=== PATIENT | female | born 1980 | race Caucasian/White ===

== ENCOUNTER 2019-09-19 09:50 | Emergency (ER) | payer SELFPAY ==
[2019-09-19] MEDS ORDERED: Ketorolac Tromethamine 30 MG/ML VIAL ONE (11:11)
[2019-09-19] MEDS ORDERED: Acetaminophen 500 MG TAB ONE (11:11)
[2019-09-19] MEDS ORDERED: Ondansetron ODT 4 MG TAB ONE (11:26)
[2019-09-19 11:55] LABS: Bacteria/HPF 1+ HPF (None Seen); Bilirubin Negative (Negative); Blood, Urine 3+ (Negative); Calcium Oxalate Crystals 2+ HPF (None Seen); Clarity Turbid (Clear); Glucose, Urine (Dipstick) Normal (Negative); Leukocyte 500 Leu/uL (Negative); Mucous/LPF Rare LPF (<2+); Nitrite Negative (Negative); Protein, Urine (Dipstick) 30 mg/dL (Neg-Trace); RBC/HPF Greater than 50 HPF (0-3); Squamous Epithelial 0-3 HPF (0-3); Urobilinogen 3 mg/dL (Less than 2); WBC/HPF Greater than 50 HPF (0-3)
--- NOTE | 2019-09-19 11:59 | CT ---
CT ABDOMEN AND PELVIS WITHOUT CONTRAST: Date: 09/19/2019 COMPARISON: Report from CT abdomen/pelvis dated 06/23/2019. HISTORY: Severe abdominal pain causing the patient to pass out. TECHNIQUE: Multiple contiguous axial images were obtained in a CT of the abdomen and pelvis without contrast. Sa gittal and coronal reformats were performed. FINDINGS: A cortically based calcification is seen in the right kidney. There is also a calcification within on e of the right renal calices measuring 8.0 mm in size. No hydronephrosis is seen on either side. No l eft renal calcifications are present. The liver, gallbladder, adrenal glands, spleen, and pancreas are unremarkable, although evaluation is limited without IV contrast. No free air, free fluid, or stranding changes are seen in the abdomen or pelvis. The reproductive org ans are unremarkable. The large and small bowel are unremarkable. The appendix is normal. No abdominal or pelvic lymphadenopathy seen. The osseous structures, visualized inferior thorax, and abdominal wall soft tissues are unremarkable. IMPRESSION: Nonobstructing right renal calcification. POS: [facility]
== END 2019-09-19 13:23 | disposition home or self-care (01) ==
LOC: ERS 09:50
DX: N20.0 Calculus of kidney (principal); F41.9 Anxiety disorder, unspecified; F32.9 Major depressive disorder, single episode, unspecified; Z87.891 Personal history of nicotine dependence
CPT/HCPCS: 74176; 81003; 81015; 96372; J1885; Q0162

== ENCOUNTER 2019-10-12 02:49 | Emergency (ER) | payer MEDICAID ==
[2019-10-12] MEDS ORDERED: Ketorolac Tromethamine 30 MG/ML VIAL ONE (03:25)
[2019-10-12 03:26] LABS: Bacteria/HPF 1+ HPF (None Seen); Bilirubin Negative (Negative); Blood, Urine Negative (Negative); Clarity Turbid (Clear); Glucose, Urine (Dipstick) Normal (Negative); Leukocyte 500 Leu/uL (Negative); Nitrite Negative (Negative); Protein, Urine (Dipstick) 70 mg/dL (Neg-Trace); RBC/HPF 0-3 HPF (0-3); Squamous Epithelial 0-3 HPF (0-3); Urobilinogen Normal mg/dL (Less than 2); WBC/HPF Greater than 50 HPF (0-3)
[2019-10-12 03:27] LABS: Pregnancy Test - Urine (BHCG) Negative (Negative); Pregu Control Background? CLEAR/WHITE (CLR/WHITE); Pregu Control Bar Appear? YES (CONTROL BAR); Specific Gravity 1.014 (1.002-1.036)
[2019-10-12 04:31] LABS: #Eosinphils 0.2 thou/uL (0.0-0.7); #Lymphocytes 2.9 thou/uL (1.20-3.40); #Monocytes 0.9 thou/uL (0.11-0.59); %Basophils 0.4 % (0.0-1.0); %Eosinophils 1.5 % (0.0-10.0); %Lymphocytes 26.4 % (21.0-51.0); %Monocytes 8.2 % (0.0-10.0); %Neutrophils 63.5 % (42.0-75.0); Hemoglobin 14.3 g/dL (12.0-16.0); Mean Corpuscular HGB CONC 34.7 g/dL (32.0-36.0); Mean Corpuscular Hemoglobin 31.9 pg (27.0-31.0); Mean Corpuscular Volume 92.1 fL (78.0-98.0); Mean Platelet Volume 9.2 fL (7.4-10.4); Platelet Count 130 thou/uL (130-400); RBC Distribution Width 11.4 % (11.5-14.5); Red Blood Cell (RBC) Count 4.49 mill/uL (4.20-5.40)
[2019-10-12 04:41] LABS: Anion Gap 12 mmol/L (10-20); BUN (Urea Nitrogen) 8 mg/dL (7.0-18.7); Calc. Creatinine Clearance 0 mL/min (70-130); Calcium 8.7 mg/dL (7.8-10.44); Carbon Dioxide 22 mmol/L (22-29); Chloride 106 mmol/L (98-107); Estimated GFR-MDRD Greater than 90; Glucose 109 mg/dL (70-105); Potassium 3.5 mmol/L (3.5-5.1); Sodium 136 mmol/L (136-145)
== END 2019-10-12 05:19 | disposition home or self-care (01) ==
LOC: ERS 02:49
DX: R10.31 Right lower quadrant pain (principal); R31.9 Hematuria, unspecified; F41.9 Anxiety disorder, unspecified; F32.9 Major depressive disorder, single episode, unspecified; Z87.891 Personal history of nicotine dependence
CPT/HCPCS: 36415; 80048; 81003; 81015; 81025; 85025; 87086; 96372; 99284; J1885

== ENCOUNTER 2019-10-17 14:03 | Outpatient (CLI) | payer MEDICAID ==
[~2019-10-17 14:03] MED LIST: Iopamidol 370 76% 100 ML VIAL ONE
--- NOTE | 2019-10-17 17:20 | CT ---
CT OF THE ABDOMEN AND PELVIS WITH AND WITHOUT IV CONTRAST: 10/17/19 INDICATION: History of microhematuria, renal calculi, hepatitis C and renal scarring. COMPARISON: Noncontrast CT of the abdomen and pelvis dated 09/19/19. FINDINGS: The lung bases are clear. No focal hepatic lesion is evident. The gallbladder is mildly distended. Th e pancreas, adrenal glands and spleen appear within normal limits. There is renal cortical scarring involving the right kidney. There is slightly more pronounced wall t hickening involving the right renal pelvis and proximal to mid right ureter with some periureteral in flammatory stranding and wall thickening. The segmentally opacified ureters are otherwise within normal limits. The visualized partially opacif ied bladder is unremarkable appearing except for some mild wall thickening and perivesicular fat stra nding. There is a stable right nephrolithiasis with the nonobstructing renal stone measuring approxim ately 8 mm involving the inferior pole of the right kidney. There is a small area of renal cortical c alcification involving the right mid kidney which is stable appearing. No left sided renal or uretera l calculus is noted. No free fluid or enlarged lymph nodes are evident. Reproductive structures appear within normal limits. The colon and small bowel appear within normal l imits. There is a normal appendix in the right lower quadrant of the abdomen. No definite acute osseo us abnormality is evident. IMPRESSION: 1. Findings of cystitis and an ascending right sided pyeloureteritis. No nephritis is grossly ev ident. No perinephric fluid collection is grossly evident. 2. Stable right nephrolithiasis and right renal cortical scarring. POS:
== END 2019-10-17 14:04 | disposition home or self-care (01) ==
LOC: BICCT 14:03
PROVIDERS: ATTEND Urology
DX: N20.0 Calculus of kidney (principal); R31.29 Other microscopic hematuria; B19.20 Unspecified viral hepatitis C without hepatic coma; N28.89 Other specified disorders of kidney and ureter; F19.10 Other psychoactive substance abuse, uncomplicated; N30.90 Cystitis, unspecified without hematuria; Z87.891 Personal history of nicotine dependence
CPT/HCPCS: 74178; Q9967

== ENCOUNTER 2019-11-07 11:15 | Outpatient (CLI) | payer MEDICAID ==
[2019-11-07 11:38] LABS: Bacteria/HPF None Seen HPF (None Seen); Bilirubin Negative (Negative); Blood, Urine 2+ (Negative); Clarity Clear (Clear); Glucose, Urine (Dipstick) Normal (Negative); Leukocyte 25 Leu/uL (Negative); Nitrite Negative (Negative); Protein, Urine (Dipstick) 20 mg/dL (Neg-Trace); RBC/HPF Greater than 50 HPF (0-3); Squamous Epithelial 0-3 HPF (0-3); Urobilinogen Normal mg/dL (Less than 2)
[2019-11-07 11:40] LABS: Urine Culture Reflex Yes Yes
--- NOTE | 2019-11-07 14:08 | RAD ---
Voiding cystourethrogram HISTORY: Renal stones. Urinary tract infection. FINDINGS: Approximately 300 cc of water-soluble contrast was instilled into the urinary bladder via a n indwelling catheter. Incidental note right renal calculus on the tack puller machine image, correlating with CT findings. Bladder demonstrates normal capacity and contour. No reflux into the ureters. Female urethra has a normal appearance during micturition. No significant post void residual. IMPRESSION : No ureteral reflux. No abnormalities are demonstrated.
== END 2019-11-07 11:16 | disposition home or self-care (01) ==
LOC: RAD 11:15
PROVIDERS: ATTEND Urology
DX: N30.90 Cystitis, unspecified without hematuria (principal); N20.0 Calculus of kidney; N28.89 Other specified disorders of kidney and ureter
CPT/HCPCS: 51600; 74455; 81001; 87086

== ENCOUNTER 2019-11-11 09:47 | Outpatient (CLI) | payer MEDICAID ==
--- NOTE | 2019-11-11 10:35 | RAD ---
EXAM: XR Abdomen 1 View/KUB PROVIDED CLINICAL HISTORY: Renal calculi COMPARISON: CT abdomen on 10/17/2019 FINDINGS: There are are calcifications overlying the right renal shadow largest overlying the inferior pole lik page related to renal calculi which were seen on prior CT exam. No additional suspicious calcifications are seen. The bowel gas pattern is nonspecific. Osseous structures have normal appeara nce. IMPRESSION: Right nephrolithiasis.
== END 2019-11-11 09:48 | disposition home or self-care (01) ==
LOC: RAD 09:47
PROVIDERS: ATTEND Urology
DX: N20.0 Calculus of kidney (principal)
CPT/HCPCS: 74018

== ENCOUNTER 2020-05-07 06:35 | Outpatient (CLI) | payer OTHER ==
[2020-05-07 15:50] LABS: Hemoglobin 16.1 g/dL (12.0-16.0); Mean Corpuscular HGB CONC 33.9 G/DL (32.0-36.0); Mean Corpuscular Hemoglobin 30.6 PG (27.0-33.0); Mean Corpuscular Volume 90.3 fl (80.0-100.0); Mean Platelet Volume 11.1 fl (7.4-10.4); Platelet Count 191 10x3/uL (130-400); Red Blood Cell (RBC) Count 5.26 10x6/uL (3.90-5.20); White Blood Cell (WBC) Count 9.8 10x3/uL (4.5-11.0)
[2020-05-07 16:04] LABS: INR-International Normal Ratio 0.9; PTT 29.5 sec (22.0-33.0); Prothrombin Time 9.8 sec (9.5-12.1)
[2020-05-07 16:23] LABS: Anion Gap 20 mmol/L (10-20); BUN (Urea Nitrogen) 9 mg/dL (7.0-18.7); Calc. Creatinine Clearance 0 mL/min (70-130); Calcium 9.1 mg/dL (7.8-10.44); Carbon Dioxide 19 mmol/L (22-29); Chloride 103 mmol/L (98-107); Estimated GFR-MDRD 90; Glucose 99 mg/dL (70-105); Potassium 4.5 mmol/L (3.5-5.1); Sodium 137 mmol/L (136-145)
[2020-05-09 12:09] LABS: SARS-CoV-2 MS2 Positive; SARS-CoV-2 N Gene Negative; SARS-CoV-2 S Gene Negative; SARS-CoV-2 by NAA Not Detected (NotDetected); SARS-CoV-2 orf1ab Negative
--- NOTE | 2020-05-12 06:55 | EKG ---
Test Reason : Blood Pressure : / mmHG Vent. Rate : 095 BPM Atrial Rate : 095 BPM P-R Int : 112 ms QRS Dur : 084 ms QT Int : 342 ms P-R-T Axes : 017 044 032 degrees QTc Int : 429 ms Normal sinus rhythm Nonspecific T wave abnormality Abnormal ECG Confirmed by SHERMAN OSMAN MD ([id number]) on 05/12/2020 6:55:28 AM Referred By: MARGAUX Confirmed By:SHERMAN OSMAN MD
== END 2020-05-07 06:36 | disposition home or self-care (01) ==
LOC: LABBT 06:35
PROVIDERS: ATTEND Urology
DX: Z01.818 Encounter for other preprocedural examination (principal); Z01.812 Encounter for preprocedural laboratory examination; N20.0 Calculus of kidney; B19.20 Unspecified viral hepatitis C without hepatic coma; F15.11 Other stimulant abuse, in remission; N28.89 Other specified disorders of kidney and ureter; R31.29 Other microscopic hematuria; Z87.891 Personal history of nicotine dependence; F19.10 Other psychoactive substance abuse, uncomplicated; Z86.718 Personal history of other venous thrombosis and embolism; N30.90 Cystitis, unspecified without hematuria; Z20.828 Contact with and (suspected) exposure to other viral communicable diseases
CPT/HCPCS: 80048; 81001; 85027; 85610; 85730; 87086; 87635; 93005; 93010; U0003

== ENCOUNTER 2020-05-12 09:16 | Day surgery (SDC) | payer OTHER ==
[2020-05-11 10:00] VITALS: BMI 33.0
[2020-05-12] MEDS ORDERED: Levofloxacin 500 mg/D5W 100 ml Premix Bag ONE (09:59)
[2020-05-12] MEDS ORDERED: Iothalamate Meglumine 60% 50 ML VIAL FS ONE (10:03)
[2020-05-12] MEDS ORDERED: Fentanyl 100 MCG/2 ML VIAL ONE ×2 (10:07→12:28)
[2020-05-12] MEDS ORDERED: Midazolam HCl 2 mg/2 ml Vial ONE (10:07)
--- NOTE | 2020-05-12 10:08 | RAD ---
Exam: 1 view abdomen COMPARISON: 11/11/2019 HISTORY: Renal calculi. Preoperative exam FINDINGS: There are few air-filled loops of small bowel, nonspecific. No osseous abnormalities There is a oval density projecting over the mid to lower right renal silhouette, measuring 1.1 cm. Th is density is similar to the previous exam. No abnormal densities in the left or right hemipelvis IMPRESSION: Solitary calculus projecting over the right.
[2020-05-12] MEDS ORDERED: PROPOFOL 200 MG/20 ML VIAL ONE (10:54)
[2020-05-12] MEDS ORDERED: Ondansetron PF 4 MG/2 ML Vial ONE (10:54)
[2020-05-12] MEDS ORDERED: Lidocaine 1% PF 5 ML VIAL ONE (10:54)
[2020-05-12] MEDS ORDERED: Dexamethasone 20 MG/5 ML VIAL ONE (10:54)
--- NOTE | 2020-05-12 11:24 | RAD ---
EXAM: Retrograde IVP HISTORY: Kidney stones COMPARISON: KUB 05/12/2020 FINDINGS/IMPRESSION: Limited intraoperative fluoroscopic views of the retrograde IVP were submitted f or interpretation. A right ureteral stent is seen in good position. The previously seen calcification projecting over the right kidney is not visualized on this exam.
[2020-05-12] MEDS ORDERED: Ketorolac Tromethamine 30 MG/ML VIAL ONE (11:30)
[2020-05-12] MEDS ORDERED: Oxybutynin 5 MG TAB ONE (11:59)
[2020-05-12] MEDS ORDERED: Phenazopyridine HCl 100 MG TAB ONE ×2 (12:00)
--- NOTE | 2020-05-12 12:41 | OP ---
DATE OF PROCEDURE: 05/12/2020 PREOPERATIVE DIAGNOSES: 1. A 40-year-old female with history of right mid to lower pole renal calculi, 8 mm. 2. Right mid pole cortical linear calcific density with cortical scarring 3. History of chronic right abdominal discomfort. POSTOPERATIVE DIAGNOSES: 1. A 40-year-old female with history of right mid to lower pole renal calculi, 8 mm. 2. Right mid pole cortical linear calcific density with cortical 3. History of chronic right abdominal discomfort. PROCEDURES PERFORMED: Cystoscopy, right retrograde pyelogram, balloon dilatation of the distal ureter, flexible ureteroscopy, pyeloscopy, laser lithotripsy of right lower pole calculi, 6 x 22 double-J ureteral stent with distal tail in situ. ANESTHESIA: LMA. COMPLICATIONS: None apparent. SPECIMEN: None. INTRAOPERATIVE FINDINGS: 1. Bladder grossly unremarkable. 2. Right lower pole renal calculi consistent with CT. 3. Second linear calcific density parenchymal based on CT, consistence that it is not in the collecting system. INDICATIONS FOR PROCEDURE AND HISTORY: Ms. Woodard is a 40-year-old female referred to de by [facility] due to history of hematuria, UTI, right renal calculi. CT demonstrated a right nonobstructing lower pole 8 mm calculi. She does also have a cortically-based calcification of the right renal parenchyma 5 mm with scarring. She did undergo workup for VCUG negative for reflux. She has been fully informed that her presenting chronic right upper quadrant abdominal discomfort is unlikely due to her presenting renal calculi as there is no evidence of hydronephrosis nor is it in the location for a ball-valve intermittent obstruction. Nevertheless, she desires to proceed with elective ureteroscopy and laser lithotripsy of the stone. We discussed options of ESWL and she desires more definitive treatment and presents today for ureteroscopy, laser lithotripsy. Risks and complications of the procedure were reviewed with her in detail including, but not limited to: Bleeding, pain, infection, injury to adjacent organs, ureteral renal kidney injury, sepsis, stricture formation. Possible secondary procedure reviewed and she desired to proceed without reservation. DESCRIPTION OF PROCEDURE: After an informed consent was signed, the patient was taken to the operating room, placed in a dorsal lithotomy position with the genital area prepped and draped in the usual surgical sterile fashion. The bladder was entered with a 21-Stateless cystoscope and the urethra was grossly unremarkable as well as the bladder. The ureteral orifices identified in normal anatomical location. The right UO was intubated with a 5-Stateless open-ended catheter and a retrograde pyelogram performed demonstrating no evidence of hydronephrosis. The stone was seen as a radiopaque density in the mid to lower pole. At this time, a 0.035 Sensor wire was placed into the right upper pole and a balloon dilation of the intramural ureter was performed with a 4 cm 12-Stateless [employer] dilator. After appropriate dilatation, the balloon was completely deflated and a 10-Stateless dual-lumen access sheath was able to be passed without significant issues to the level of the proximal ureter. A 0.035 Super Stiff wire was then placed as a safety wire into the right upper pole. At this time, a 12/14-Stateless navigator was unable to be passed without significant issues to the level of the proximal ureter atraumatically. The inner stylet was removed and a flexible ureteroscope was unable to be advanced into the collecting system. We surveyed the collecting system and again the only stone I was able to see was the mid to lower pole stone consistent with a CAT scan. Laser lithotripsy of the stone was performed with a 265 micron laser fiber with a ball-tip at 1.0 joules. The stone broke up nicely into multiple tiny fragmented debris. At the end of the procedure, the stone fragments were too small to basket extract. What remained were tiny dust-like debris, which she will pass uneventfully. The ureter was surveyed, which demonstrated no evidence of ureteral trauma, stone debris of concern. A 6 x 22 double-J ureteral stent was passed without difficulty. Proximal coil was seen in the mid pole with adequate redundancy in the bladder with distal tail left in situ. The bladder was completely emptied and all wires were removed and corrected. She tolerated the procedure well and transported to the recovery room in stable condition. She will see me next Sunday at 8 o'clock for cysto, stent pull under local, with KUB to be obtained at 7:00 a.m., 1 hour prior to the appointment as she travels out of town to see me. Postop medications sent to the patient's pharmacy in [place]. Job ID: [id number] MTDD
== END 2020-05-12 13:59 | disposition home or self-care (01) ==
LOC: SDC 09:16
PROVIDERS: ATTEND Urology
PROC: 0T768DZ Dilation of Right Ureter with Intraluminal Device, Via Natural or Artificial Opening Endoscopic (ICD-10-PCS; principal; 2020-05-12)
PROC: 0TC38ZZ Extirpation of Matter from Right Kidney Pelvis, Via Natural or Artificial Opening Endoscopic (ICD-10-PCS; principal; 2020-05-12)
DX: N20.0 Calculus of kidney (principal); N18.6 End stage renal disease; F41.9 Anxiety disorder, unspecified; F32.9 Major depressive disorder, single episode, unspecified; F95.2 Tourette's disorder; Z79.01 Long term (current) use of anticoagulants; Z79.899 Other long term (current) drug therapy; Z87.891 Personal history of nicotine dependence; Z88.0 Allergy status to penicillin; Z91.5 Personal history of self-harm
CPT/HCPCS: 74018; 74420; J1100; J1885; J1956; J2250; J2405; J2704; J3010

== ENCOUNTER 2020-05-18 07:34 | Outpatient (CLI) | payer OTHER ==
--- NOTE | 2020-05-18 08:27 | RAD ---
EXAM: XR Abdomen 1 View/KUB PROVIDED CLINICAL HISTORY: Renal calculi COMPARISON: 05/12/2020 FINDINGS: The 11 mm calculus described on the prior examination is no longer apparent. Smaller calculi again ov erlies the upper pole right kidney. Interval placement of a right ureteral stent, the distal coil of which overlies the urinary bladder and the proximal colon which overlies the inferior right renal shadow. The abdominal bowel gas pattern is nonspecific. The osseous structures demonstrate no acute findings. IMPRESSION: Interval placement of right ureteral stent. Nonvisualization of previously described large right shadi l calculus.
== END 2020-05-18 07:35 | disposition home or self-care (01) ==
LOC: RAD 07:34
PROVIDERS: ATTEND Urology
DX: N20.0 Calculus of kidney (principal); Z96.0 Presence of urogenital implants
CPT/HCPCS: 74018